=== PATIENT | female | born 1960 | race Caucasian/White ===

== ENCOUNTER 2020-07-17 05:51 | Day surgery (SDC) | payer OTHER ==
[~2020-07-17] VITALS: Ht 144.8 cm; Wt 57.2 kg
[2020-07-17 06:45] VITALS: BP 111/76
[2020-07-17] MEDS ORDERED: TRAM50TA2 PO (06:54)
[2020-07-17] MEDS ORDERED: TIZA2CAP PO (06:54)
[2020-07-17] MEDS ORDERED: PREG100C PO (06:54)
[2020-07-17] MEDS ORDERED: SODIUM CHLORIDE 0.9% 1,000 ML IV SCH (07:30)
[2020-07-17] MEDS ORDERED: FENTANYL PF 100 MCG/2ML ONE (07:49)
[2020-07-17] MEDS ORDERED: MIDAZOLAM 1 MG/ML, 5ML ONE ×2 (07:49→07:50)
[2020-07-17] MEDS ORDERED: NALOXONE 1 MG/ML, 2ML ONE (07:50)
[2020-07-17] MEDS ORDERED: LIDOCAINE 1%, 10ML ONE (07:50)
[2020-07-17] MEDS ORDERED: FLUMAZENIL 0.1 MG/1 ML, 5ML ONE (07:50)
[2020-07-17 08:03] LABS: PROTHROMBIN TIME 10.7 Seconds (9.6-11.5)
== END 2020-07-17 10:08 | disposition home or self-care (01) ==
LOC: OUT 05:51 → EDSTATUS 08:00 → OUT 10:08
PROVIDERS: ATTEND Internal Medicine
DX: R74.8 Abnormal levels of other serum enzymes (principal); M79.7 Fibromyalgia; G43.909 Migraine, unspecified, not intractable, without status migrainosus; G25.81 Restless legs syndrome; K59.00 Constipation, unspecified; K21.9 Gastro-esophageal reflux disease without esophagitis; K51.20 Ulcerative (chronic) proctitis without complications; I34.1 Nonrheumatic mitral (valve) prolapse; Z79.01 Long term (current) use of anticoagulants; Z79.891 Long term (current) use of opiate analgesic; Z79.899 Other long term (current) drug therapy; Z88.8 Allergy status to other drugs, medicaments and biological substances; Z90.49 Acquired absence of other specified parts of digestive tract; Z98.890 Other specified postprocedural states
CPT/HCPCS: 36415; 47000; 76942; 85610; 88307; 88313; 99156; J2250; J3010; J7030; J2310